=== PATIENT | male | born 1960 | race African-American/Black ===

== ENCOUNTER 2016-11-24 21:21 | Emergency (ER) | payer MEDICAID ==
[~2016-11-24] VITALS: Ht 185.4 cm; Wt 108.9 kg
[~2016-11-24 21:21] MED LIST: ELIMITE 5% CREA60 GM TOPIC; KEFLEX500 MG ORAL; MIRTAZAPINE15 MG ORAL; PERMETHRIN60 GM TOPIC; QUETIAPINE FUMA25 MG ORAL
[2016-11-24 21:47] VITALS: BP 133/65
[2016-11-24] MEDS ORDERED: IBUPROFEN600 MG ORAL (22:28)
[2016-11-24] MEDS ORDERED: HYDROCORTISONE30 G2 TP (22:28)
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
[2016-11-24 23:22] VITALS: BP 126/68
--- NOTE | 2016-11-25 11:17 | Diagnostic Imaging Report ---
Indication: Pain Findings: 3 views of the right shoulder were obtained. No acute fractures, malalignment, erosions or periostitis are identified. Bone mineralization is within normal limits. Soft tissues are unremarkable. Impression: Negative examination of the shoulder.
== END 2016-11-24 23:22 | disposition home or self-care (01) ==
LOC: EMR 21:57
DX: S46.911A Strain of unspecified muscle, fascia and tendon at shoulder and upper arm level, right arm, initial encounter (principal); V43.52XA Car driver injured in collision with other type car in traffic accident, initial encounter; Y92.414 Local residential or business street as the place of occurrence of the external cause; L30.9 Dermatitis, unspecified
CPT/HCPCS: 99284

== ENCOUNTER 2020-01-27 15:26 | Emergency (ER) | payer MEDICAID ==
[~2020-01-27] VITALS: Ht 185.4 cm; Wt 108.9 kg
[~2020-01-27 15:26] MED LIST changes: +HYDROCORTISONE30 G2 TP; +IBUPROFEN600 MG ORAL
[2020-01-27] MEDS ORDERED: Tetanus/Diptheria/Pertussis IM ONE (16:00)
--- NOTE | 2020-01-27 16:26 | Emergency Room Report ---
History of Present Illness General Chief Complaint: Upper Extremity Injury Source: Patient Present Illness HPI 59-year-old male with no known significant past medical history here complaining of feeling like there is a piece of glass inside the left index finger. Patient reports that he was cutting grass 2 weeks ago and he feels that he got a cut of the nailbed and feels like there is a small piece of glass in there. No signs of trauma noted, minimal paronychia noted around the nailbed of the left index finger. Patient has range of motion denies any tingling numbness. Has full strength of the fingers. Has not taken medication for symptom relief. Is not u p-to-date with tetanus shot. Denies any fever and chills, chest pain, shortness of breath, headache or dizziness. Patient is neurovascularly intact. 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 COVID-19 Screening: Negative COVID-19 COVID-19 Testing Source: cristela Patient History Past Medical History: see triage record Past Surgical History: none Pertinent Family History: none Immunizations: other - tdap today Reviewed Nursing Documentation: PMH: Agreed; PSxH: Agreed Nursing Documentation-PMH Past Medical History: No History, Except For Review of Systems All Other Systems: negative except mentioned in HPI Physical Exam Vital Signs Date Time Temp Pulse Resp B/P (MAP) Pulse Ox O2 Delivery O2 Flow Rate FiO2 01/27/20 15:30 97.9 68 16 143/72 (95) 96 Room Air Sp02 EP Interpretation: reviewed, normal General Appearance: no apparent distress, alert, GCS 15, non-toxic Head: normocephalic, atraumatic Eyes: bilateral eye normal inspection, bilateral eye PERRL ENT: hearing grossly normal, normal pharynx, no angioedema, normal voice Neck: full range of motion, supple/symm/no masses Respiratory: chest non-tender, lungs clear, normal breath sounds, no rhonchi, no respiratory distress, no retraction, speaking full sentences Cardiovascular #1: regular rate, rhythm, no edema, no murmur Cardiovascular #2: 2+ radial (R), 2+ radial (L) Gastrointestinal: normal bowel sounds, non tender, soft, non-distended, no guarding, no rebound Rectal: deferred Musculoskeletal: back normal, digits/nails normal, non-tender Neurologic: alert, motor strength/tone normal, oriented x3, sensory intact, responsive, speech normal Psychiatric: judgement/insight normal, memory normal, mood/affect normal, no suicidal/homicidal ideation Skin: other - Infection of the left index finger nailbed Lymphatic: no adenopathy Medical Decision Making PA Attestation All my diagnosis and treatment plans were reviewed ad discussed with my supervising physician Dr. Ramirez Diagnostic Impression: Primary Impression: Finger infection ER Course 59-year-old male with no known significant past medical history here complaining of feeling like there is a piece of glass inside the left index finger. Patient reports that he was cutting grass 2 weeks ago and he feels that he got a cut of the nailbed and feels like there is a small piece of glass in there. No signs of trauma noted, minimal paronychia noted around the nailbed of the left index finger. Patient has range of motion denies any tingling numbness. Has full strength of the fingers. Has not taken medication for symptom relief. Is not up-to-date with tetanus shot. Denies any fever and chills, chest pain, shortness of breath, headache or dizziness. Patient is neurovascularly intact. Ddx considered but are not limited to : Cellulitis, paronychia, superficial infection, abscess Vital signs: are WNL, pt. is afebrile H&PE are most consistent with: Infection of nail but ORDERS: Hand x-ray, Augmentin, Motrin ED INTERVENTIONS: Tdap DISCHARGE: At this time pt. is stable for d/c to home. Will provide printed patient care instructions, and any necessary prescriptions. Care plan and follow up instructions have been discussed with the patient prior to discharge. Patient take medication as directed, follow primary care provider, full sensation return to the emergency room. At this time no foreign body needed an x-ray however to follow-up with primary doctor for foreign body sensation continues Other X-Ray Diagnostic Results Other X-Ray Diagnostic Results : X-Ray ordered: Left hand # of Views/Limited Vs Complete: 3 View Indication: Pain EP Interpretation: Yes PA Xray: Interpretation reviewed, by supervising MD, and agrees with findings. Interpretation: no dislocation, no soft tissue swelling, no fractures, other - No foreign body Impression: No acute disease Electronically Signed by: Tj Lara PA-C Last Vital Signs Date Time Temp Pulse Resp B/P (MAP) Pulse Ox O2 Delivery O2 Flow Rate FiO2 01/27/20 15:30 97.9 68 16 143/72 (95) 96 Room Air Disposition: HOME, SELF-CARE Condition: Stable Scripts Ibuprofen* (MOTRIN*) 600 Mg Tablet 600 MG ORAL Q6H PRN for For Pain, #30 TAB 0 Refills Prov: Tj Moore 01/27/20 Amoxicillin/Potassium Clav 875-125* (AUGMENTIN 875-125 TABLET*) 1 Each Tablet 1 TAB ORAL TWICE A DAY for 7 Days, #14 TAB Prov: Tj Moore 01/27/20 Patient Instructions: Fingertip Infection Additional Instructions: Take medication as directed, follow-up with your primary care provider, if worsening symptoms return to the emergency room Tj Moore Jan 27, 2020 16:26
[2020-01-27] MEDS ORDERED: IBUPROFEN600 M1 ORAL (16:27)
[2020-01-27] MEDS ORDERED: AUGMENTIN 875-1 EAC1 ORAL (16:27)
--- NOTE | 2020-01-27 16:35 | NUR ---
ED Nurse Note: Pt cleared by health care Provider for discharge. DC instructions/prescription was given and explained to pt and verbalized understanding of teachings. All medical deviecs such as ID band removed. Pt is AAO x4, ambulatory and left with all personal belongings.
--- NOTE | 2020-01-27 17:48 | Diagnostic Imaging Report ---
Indication: Injury was suspected foreign body, piece of glass to the left index finger Technique: 3 views left hand Comparison: none Findings: Two linear opacities are seen in the left index finger, only clearly visible on the lateral view. No acute fractures. No dislocations. Joint spaces are preserved. Impression: Linear opacities in the tip of the left index finger seen on the lateral view only, likely representing foreign bodies given stated clinical history of such
[2020-01-27 19:29] VITALS: BP 143/72
== END 2020-01-27 16:50 | disposition home or self-care (01) ==
LOC: EMR 16:08
DX: L08.9 Local infection of the skin and subcutaneous tissue, unspecified (principal); L03.012 Cellulitis of left finger; Z23 Encounter for immunization
CPT/HCPCS: 73130; 90471; 90715; Z7502; 99283

== ENCOUNTER 2020-04-19 21:56 | Emergency (ER) | payer MEDICAID ==
[~2020-04-19] VITALS: Ht 182.9 cm; Wt 107.5 kg
[~2020-04-19 21:56] MED LIST changes: +AUGMENTIN 875-1 EAC1 ORAL; +IBUPROFEN600 M1 ORAL
[2020-04-19 22:10] VITALS: BP 133/77
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
[2020-04-19] MEDS ORDERED: Acetaminophen 500mg (ES) tab ORAL ONE (22:30)
--- NOTE | 2020-04-19 22:40 | Diagnostic Imaging Report ---
EXAM: CT Head Without Intravenous Contrast CLINICAL HISTORY: PAIN TECHNIQUE: Axial computed tomography images of the head/brain without intravenous contrast. CTDI is 53.40 mGy and DLP is 1018.80 mGy-cm. One or more of the following dose reduction techniques were used: automated exposure control, adjustment of the mA and/or kV according to patient size, use of iterative reconstruction technique. COMPARISON: CT head dated 09/23/2006 FINDINGS: Brain: No acute infarct, hemorrhage, mass or edema. Minimal chronic small vessel ischemic disease. Ventricles: Unremarkable. No ventriculomegaly. Bones/joints: Unremarkable. No acute calvarial fracture. Soft tissues: Unremarkable. Sinuses: Mild mucosal thickening of paranasal sinuses. Mastoid air cells: Unremarkable as visualized. IMPRESSION: No acute infarct, hemorrhage, mass or edema.
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
--- NOTE | 2020-04-20 00:30 | NUR ---
ED Nurse Note: ERMD bedside for lac repair. ERMD was able to place 1 stable in head laceration. He refuses to finish procedure due to pain. He will sign AMA.
[2020-04-20] MEDS ORDERED: CEPHALEXIN500 MG ORAL (00:34)
[2020-04-20] MEDS ORDERED: BACITRACIN15 GM TOPIC (00:35)
--- NOTE | 2020-04-20 00:35 | NUR ---
ED Nurse Note: Ointment applied and lacerations bandaged by tech.
[2020-04-20] MEDS ORDERED: Bacitracin Oint UD TOPIC ONE ×2 (00:37→00:45)
[2020-04-20 00:45] VITALS: BP 129/85
--- NOTE | 2020-04-20 00:45 | NUR ---
AMA: SEE AMA FORM. Patient is aaox4, ambulatory with steady gait. ID band removed. Patient verbalized understanding of prescription instructions and regarding leaving AMA. Vital signs stable. He took all belongings with him.
== END 2020-04-20 00:45 | disposition left against medical advice (07) ==
LOC: EMR 22:13
DX: S01.01XA Laceration without foreign body of scalp, initial encounter (principal); Y04.2XXA Assault by strike against or bumped into by another person, initial encounter; Y92.009 Unspecified place in unspecified non-institutional (private) residence as the place of occurrence of the external cause
CPT/HCPCS: 70450; Z7502; 99284

== ENCOUNTER → 2020-05-20 | Emergency (ER) | payer MEDICAID ==
[~2020-05-20] MED LIST changes: +BACITRACIN15 GM TOPIC; +CEPHALEXIN500 MG ORAL
--- NOTE | 2020-05-20 10:53 | Emergency Room Report ---
Medical Decision Making Diagnostic Impression: Primary Impression: Patient left without being seen ER Course 59-year-old male left without being seen nor was he triaged Disposition: LEFT W/OUT BEING SEEN Condition: Unknown Armando Yeh MD May 20, 2020 10:53
== END | disposition left against medical advice (07) ==
LOC: EMR 10:54
DX: Z48.02 Encounter for removal of sutures (principal); Z53.21 Procedure and treatment not carried out due to patient leaving prior to being seen by health care provider

== ENCOUNTER 2020-05-22 07:41 | Emergency (ER) | payer MEDICAID ==
[~2020-05-22] VITALS: Ht 185.4 cm; Wt 106.6 kg
[2020-05-22 08:05] VITALS: BP 164/72
[2020-05-22 08:06] VITALS: BP 164/72
--- NOTE | 2020-05-22 08:08 | NUR ---
sutures removed by dr schaeffer discharge with instruction to follow up with pmd
--- NOTE | 2020-05-22 11:15 | Emergency Room Report ---
History of Present Illness General Chief Complaint: Wound Recheck/Suture Removal Source: Patient Present Illness HPI Patient presents to the emergency department today for a wound check and staple removal. Patient states that he had a fall and sustained a laceration to the back of his head. He has one single staple tacked in place that has been in place for over 2 weeks. He is requesting removal. He denies any fever or any other injuries he is back to baseline. No other complaints are noted. No other modifying factors. No other associated signs and symptoms. No other complaints were noted. 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 Patient History Past Medical History: none Past Surgical History: none Pertinent Family History: none Social History: Denies: smoking, alcohol use, drug use Reviewed Nursing Documentation: PMH: Agreed; PSxH: Agreed Nursing Documentation-PMH Past Medical History: No History, Except For Review of Systems All Other Systems: negative except mentioned in HPI Physical Exam Vital Signs Date Time Temp Pulse Resp B/P (MAP) Pulse Ox O2 Delivery O2 Flow Rate FiO2 05/22/20 07:55 96.8 59 16 164/72 (102) 99 Room Air Sp02 EP Interpretation: reviewed, normal General Appearance: normal inspection, well appearing, no apparent distress, alert Head: atraumatic, other - Single staple back of the head ENT: normal ENT inspection, hearing grossly normal, normal voice Neck: normal inspection, full range of motion, supple, no bony tend Respiratory: normal inspection, lungs clear, normal breath sounds, no r espiratory distress, no retraction, no wheezing Cardiovascular #1: regular rate, rhythm, no edema Gastrointestinal: normal inspection, normal bowel sounds, non tender, soft, no guarding, no hernia Genitourinary: no CVA tenderness Musculoskeletal: normal inspection, back normal, normal range of motion Neurologic: alert, responsive, speech normal, normal inspection Psychiatric: normal inspection, judgement/insight normal, mood/affect normal Medical Decision Making Diagnostic Impression: Primary Impression: Encounter for removal of sutures ER Course Patient presents emergency department today for staple removal. Differential considerations include wound infection, appropriate healing, wound check. Patient's exam is benign with normal healing. [place] in place. Staple was removed. Procedure note: Under sterile conditions the staple was removed with staple remover. Patient tolerated procedure without difficulty. No complications noted. Last Vital Signs Date Time Temp Pulse Resp B/P (MAP) Pulse Ox O2 Delivery O2 Flow Rate FiO2 05/22/20 08:06 96.8 16 164/72 99 Room Air 05/22/20 07:55 59 Status: improved Disposition: HOME, SELF-CARE Condition: Stable Referrals: [facility],REFERRING (PCP) Patient Instructions: Wound Closure Removal Andrew Hunt MD May 22, 2020 11:15
== END 2020-05-22 08:10 | disposition home or self-care (01) ==
LOC: EMR 08:09
DX: Z48.02 Encounter for removal of sutures (principal); S01.01XD Laceration without foreign body of scalp, subsequent encounter; X58.XXXD Exposure to other specified factors, subsequent encounter
CPT/HCPCS: 99281